=== PATIENT | female | born 1960 | race Caucasian/White ===

== ENCOUNTER 2020-08-29 16:13 | Emergency (ER) | payer BC, SELFPAY ==
[2020-08-29] VITALS (7 sets, daily range): BP systolic 153–173; BP diastolic 88–92; PULSE 20–86; RESP 75; TEMP 36.4; O2SAT 92–100; BMI 31.7
--- NOTE | 2020-08-29 16:18 | DI.RAD.S_ITS ---
PROCEDURE: XR HUMERUS LT 2V INDICATIONS: injury TECHNIQUE: 2 views of the humerus were acquired. COMPARISON: None. FINDINGS: Bones: Moderately displaced and moderately angulated comminuted fracture of the mid/proximal humerus. Soft tissues: No suspicious soft tissue calcifications. IMPRESSION: Humeral fracture. Dictated by: Ursula Rodriguez M.D. on 08/29/2020 at 16:45 Approved by: Ursula Rodriguez M.D. on 08/29/2020 at 16:46
--- NOTE | 2020-08-29 16:29 | ED.FALL ---
HPI - Fall General Chief Complaint: Fall Stated Complaint: GFL Time Seen by Provider: 08/29/20 16:29 Source: patient and EMS Mode of arrival: EMS Limitations: no limitations History of Present Illness HPI Narrative: This is a 60-year-old female comes to the emergency department with mechanical fall. Patient tripped over a rug she fell down onto her knee and then hit her head states that she felt immediate pain. She has significant pain in her left upper arm patient. Patient denies any thinners. No aspirin, Plavix or Coumadin. She does take lisinopril for hypertension she denies any other medications. Denies any major surgeries. She denies any pain in her knees and states she has been able to move them without issue. Patient has allergies to sulfa. Related Data Previous Rx's Medication Instructions Recorded hydroxyzine pamoate [Vistaril] 25 mg PO TID PRN #20 cap 08/29/20 oxycodone 5 mg PO QID PRN #20 tab 08/29/20 Allergies Allergy/AdvReac Type Severity Reaction Status Date / Time Sulfa (Sulfonamide Allergy Verified 08/29/20 16:16 Antibiotics) Review of Systems Review of Systems ROS Unobtainable: All systems reviewed & are unremarkable except as noted in HPI and below Patient History Medical History (Updated 08/29/20 @ 18:20 by Jamee Mcelroy DO) Hypertension Social History Smoking Status: Never smoker Smoking Status: Never smoker alcohol intake frequency: 0-2 drinks per day Substance Use Type: does not use Exam Narrative Exam Narrative: GEN: Patient appears in moderate distress. HEAD: No evidence of trauma, no raccoon/Haque sign. NECK: Nontender, painless range of motion, trachea midline Negative Nexus criteria, there is no mid line tenderness, distracting injury, altered mental status, neuro deficit, recent EtOH. EYES: PERRLA, EOMI ENT: External inspection normal, trachea is midline, Nares are clear, no dental or oral injury, airway is normal and with normal occlusion, No bony tenderness RESP: Chest is nontender and has symmetric movement, no ecchymosis, breath sounds are normal no crackles, wheezes or rales CVS: Heart sounds are normal, no murmur noted, No JVD. ABG/GI: Nontender, soft, normal bowel sounds, no distention, no organomegaly, pelvic rock is negative NEURO: Oriented AOx3, neuro is grossly intact, sensation and motor is normal all 4 extremities moving, cranial nerves II through XII are intact, GCS is 15 PSYCH: Normal mood and affect SKIN: Intact, warm and dry, no crepitus and without decubitus BACK: No CVA tenderness, no vertebral tenderness, no step-off's, no crepitus EXT: Patient has some very small areas of ecchymosis bilateral knee but has full range of motion and nontender to palpation. She has pain with palpation over the mid left humerus. She also has fullness and appears to be some deformity, she does not have any tenderness at the left elbow, forearm, wrist or hand. She has 2+ pulses full range of motion fingers. Patient does not wish to move her left upper extremity at all. She is quite uncomfortable even laying still, hips are nontender, no pedal edema, normal color and temperature, normal range of motion of extremities with normal tendon exam, 2+ pulses in all four extremities Initial Vital Signs Initial Vital Signs: Vital Signs Temperature 97.6 F 08/29/20 16:16 Pulse Rate 20 L 08/29/20 16:16 Respiratory Rate 75 H 08/29/20 16:16 Pulse Oximetry 100 08/29/20 16:16 Course Orders Ordered: ED Orders 08/29/20 16:18 XR humerus LT 2V Stat Discontinued Medications Lorazepam (Lorazepam 2 Mg/Ml Inj) 0.5 mg IV NOW ONE Stop: 08/29/20 16:37 Last Admin: 08/29/20 16:42 Dose: 0.5 mg Documented by: MARY Morphine Sulfate (Morphine 4 Mg/Ml Inj) 4 mg IV NOW ONE Stop: 08/29/20 16:38 Last Admin: 08/29/20 16:43 Dose: 4 mg Documented by: MARY Ondansetron HCl (Ondansetron 4 Mg/2 Ml Inj) 4 mg IV NOW ONE Stop: 08/29/20 18:35 Last Admin: 08/29/20 18:35 Dose: 4 mg Documented by: MARY Oxycodone/Acetaminophen (Oxycodone/Acetaminophen 5/325 Tablet) 2 tab PO NOW ONE Stop: 08/29/20 17:29 Last Admin: 08/29/20 17:41 Dose: 2 tab Documented by: AUPDIKE Reevaluation(s) Reevaluation #1: Patient still has pain but has improved after her splint has been placed. Time: 17:28 Reevaluation #2: Patient pain is 4/10. She states present but definitely improved. Discussed orthopedic surgery recommendations. Patient feels comfortable with this plan. Her mother is here currently. Plan to discharge home with follow-up with Orthopedic surgery. Pain control and continue with splint. Return precautions were discussed. Time: 18:14 Consultations Consultation #1: Spoke with Dr. Cho, she may require surgical repair but they will need to order a special plate. She also states some of these patients will sometimes be allowed to partially heel and then whenever areas are not healing properly or then fixated. She recommends splint/sling, pain management and follow-up with Orthopedic surgery. Time: 17:28 Vital Signs Vital signs: Vital Signs - 8 hr 08/29/20 16:16 08/29/20 16:17 08/29/20 17:13 Temperature 97.6 F Pulse Rate 20 L 86 81 Respiratory Rate 75 H Blood Pressure Pulse Oximetry 100 08/29/20 17:30 08/29/20 17:46 08/29/20 18:00 Temperature Pulse Rate 82 70 75 Respiratory Rate Blood Pressure 173/88 H Pulse Oximetry 92 98 96 08/29/20 18:01 Temperature Pulse Rate 78 Respiratory Rate Blood Pressure 153/92 H Pulse Oximetry 98 MDM - Fall Imaging Data Extremity x-ray #1: Attestation: I personally reviewed and interpreted this imaging study as follows: My Impression: Fracture dislocation midshaft humerus on the left Radiologist's Impression: [address] [id number] ReportSigned Patient: Vale Parra#: [id number]: 8Acct:[id number]/Sex: 60 / FDate of Service: 08/29/20Loc: EDAccession Number: [id number] Procedure: XR humerus LT 2V Ordering Provider: Jamee Mcelroy D.O. PROCEDURE: XR HUMERUS LT 2V INDICATIONS: injury TECHNIQUE: 2 views of the humerus were acquired. COMPARISON: None. FINDINGS: Bones: Moderately displaced and moderately angulated comminuted fracture of the mid/proximal humerus. Soft tissues: No suspicious soft tissue calcifications. IMPRESSION: Humeral fracture. Dictated by: Ursula Rodriguez M.D. on 08/29/2020 at 16:45 Approved by: Ursula Rodriguez M.D. on 08/29/2020 at 16:46 [facility] Narrative Medical decision making narrative: This is a 60-year-old female with mechanical ground level fall with significant pain and deformity in her left upper extremity. Patient has a humeral fracture. Patient was placed in a depth take splint by nursing and was neurovascularly intact after being checked by myself afterwards. Patient's pain has improved significantly although still present. Her images were reviewed for with Dr. Cho from Orthopedic surgery and patient is to follow-up this following week for recheck and definitive treatment. Discharge Plan Departure Patient Disposition: Home Clinical Impression: Left humeral fracture Qualifiers: Encounter type: initial encounter Fracture type: closed Fracture morphology: comminuted Fracture alignment: displaced Fall Qualifiers: Encounter type: initial encounter Qualified Code(s): W19.XXXA - Unspecified fall, initial encounter Instructions: DI for Humeral Fracture Activity Restrictions/Additional Instructions: Follow-up with Orthopedic surgery, call tomorrow to set up an appointment for your humeral fracture. The office number is included below they have offices in [facility] and [place]. Just let the office know you would like to follow up in [place] if this is your preference. Take Tylenol up to a 1000 mg every 8 hours as needed for pain control. If this is inadequate you may take narcotic pain medication 1-2 tablets every 4-6 hours as needed for pain. If you are having muscle spasm you may take Vistaril 1 tablet every 8 hours as needed in addition. These medications are sedating so do not drive, perform hazardous activities or make any major decisions while taking them. Narcotics are constipating so make sure you take stool softener such as Colace 1-2 tablets daily while taking narcotics until stools are soft. Prescription to [facility] Splint Care: Keep splint clean and dry. Elevated affected body part to decrease swelling. OK to use ice pack on the affected body part. Use for 15-20 minutes each time, for 5-6x per day. If you develop worsening pain, numbness, tingling, discoloration of the affected body part, loosen the splint by loosening the JUANCARLOS wrap, and either see your doctor for an urgent re-assessment, or return to the Emergency Department. Return to the Emergency Department for any new or worsening symptoms, passing, new chest pain, shortness of breath, persistent vomiting, new numbness, weakness or loss of sensation in your extremities, new swelling of the extremity, rapidly worsening pain in your left upper extremity, pallor or cyanosis or other new or concerning symptoms.. Prescriptions: New oxycodone 5 mg tablet 5 mg PO QID PRN (Reason: pain) Qty: 20 RF: 0 hydroxyzine pamoate [Vistaril] 25 mg capsule 25 mg PO TID PRN (Reason: muscle spasm) Qty: 20 RF: 0 Referrals: Riya Cho MD [Physician] - Stand Alone Forms: Work Release Note
[2020-08-29] MEDS: LORazepam 2 MG/ML INJ 0.5 MG IV (16:42)
[2020-08-29] MEDS: MORPHINE 4 MG/ML INJ IV (16:43)
[2020-08-29] MEDS: ONDANSETRON 4 MG/2 ML INJ (16:43)
[2020-08-29] MEDS: OXYCODONE/ACETAMINOPHEN 5/325 TABLET 2 TAB PO (17:41)
[2020-08-29] MEDS: ONDANSETRON 4 MG/2 ML INJ IV (18:35)
== END 2020-08-29 18:40 | disposition home or self-care (01) ==
PROVIDERS: Emergency Provider Emergency Medicine
DX: S42.302A Unspecified fracture of shaft of humerus, left arm, initial encounter for closed fracture (principal); S09.90XA Unspecified injury of head, initial encounter; I10 Essential (primary) hypertension; W19.XXXA Unspecified fall, initial encounter
CPT/HCPCS: 36415; 73060; 96374; 96375; 96376; 99283; 99284; J2060; J2270; J2405

== ENCOUNTER → 2022-01-06 07:44 | Outpatient (CLI) | payer BC, SELFPAY ==
[2022-01-06 09:25] LABS: Add Manual Diff / Slide Review NO; Basophils Absolute Auto 0 /uL (0-100); Basophils Percent Auto 0.7 % (0-2); Eosinophils Absolute Auto 200 /uL (0-450); Eosinophils Percent Auto 2.6 % (2-4); Hematocrit 38.6 % (36-46); Hemoglobin 12.7 g/dL (12.0-16.0); Lymphocytes Absolute Auto 2000 /uL (1100-4500); Lymphocytes Percent Auto 34.2 % (25-40); Mean Corpuscular Hemoglobin 29.5 PG (26-34); Mean Corpuscular Volume 89.4 fL (80-100); Monocytes Absolute Auto 600 /uL (0-900); Monocytes Percent Auto 9.9 % (3-14); Neutrophils Absolute Auto 3100 /uL (1500-7000); Neutrophils Percent Auto 52.6 % (50-75); Platelet Count 277 X10^3/uL (150-400); Red Blood Cell Count 4.31 X10^6/uL (4.0-5.2); Red Cell Distribution Width 14.2 % (11.6-14.8)
[2022-01-06 10:00] LABS: Alanine Aminotransferase 29 IU/L (<35); Albumin 4.4 g/dL (3.5-5.0); Albumin Globulin Ratio 1.3 (1.0-2.8); Alkaline Phosphatase 74 U/L (38-126); Aspartate Aminotransferase 23 IU/L (14-36); BUN Creatinine Ratio 21.7 (6-22); Bilirubin Total 0.6 mg/dL (0.2-1.3); Blood Urea Nitrogen 18 mg/dL (7-17); Calcium 9.4 mg/dL (8.4-10.2); Carbon Dioxide 27 mmol/L (22-32); Chloride 104 mmol/L (98-107); Cholesterol 266 mg/dL (140-199); Estimated Glomerular Filt Rate > 60 mL/min (>60); Globulin 3.4 g/dL (1.7-4.1); Glucose 98 mg/dL (80-110); HDL Cholesterol 53 mg/dL (40-60); HEMOLYSIS < 15 (0-50); LDL Cholesterol Calculated 188 mg/dL (<100); Potassium 4.7 mmol/L (3.4-5.1); Sodium 141 mmol/L (137-145); Total Protein 7.8 g/dL (6.3-8.2); Triglycerides 126 mg/dL (35-150)
[2022-01-06 10:24] LABS: TSH w/ Reflex to FT4 0.49 uIU/mL (0.47-4.68)
== END ==
PROVIDERS: PCP Internal Medicine; Referring Provider Internal Medicine; Visit Provider Internal Medicine
DX: I10 Essential (primary) hypertension (principal); Z13.220 Encounter for screening for lipoid disorders; Z79.899 Other long term (current) drug therapy
CPT/HCPCS: 36415; 80053; 80061; 84443; 85025